=== PATIENT | female | born 1945 | race Two or more races ===

== ENCOUNTER 2024-07-19 11:02 | Inpatient (IN) | payer OTHER ==
[2024-07-19 11:28] VITALS: BMI 24.2
[2024-07-19] MEDS ORDERED: ONDANSETRON 4 MG/2 ML VIAL ONE (13:18)
[2024-07-19] MEDS ORDERED: FAMOTIDINE 20 MG/50 ML IVPB 20 MG/50 ML MG IVPB ONE (13:19)
[2024-07-19 13:27] LABS: BASO % 0.8 % (0-2.0); EOS % 4.4 % (0-4.5); HEMOGLOBIN 10.5 GM/dL (10.7-15.3); MCH 29.5 pg (25.7-33.7); MCHC 32.7 g/dl (32.0-36.0); MEAN CELL VOLUME 90.2 fl (80-96); MEAN PLT VOLUME 8.1 fl (7.5-11.1); MONO % 4.4 % (3.8-10.2); NEUT % 72.4 % (42.8-82.8); PLATELET COUNT 206 10^3/uL (134-434); RBC 3.55 M/mm3 (3.60-5.2); RDW 14.7 % (11.6-15.6)
[2024-07-19 13:33] LABS: INR 1.09 (0.83-1.09); PROTHROMBIN TIME (PATIENT) 12.5 SEC (9.7-13.0)
[2024-07-19] MEDS: SODIUM CHLORIDE 1,000 ML IV STA (13:34)
[2024-07-19] MEDS: FAMOTIDINE 20 MG/50 ML IVPB 20 MG/50 ML MG IVPB ONE (13:35)
[2024-07-19] MEDS: ONDANSETRON 4 MG/2 ML VIAL IVPUSH ONE (13:35)
[2024-07-19 13:36] LABS: ACTIVATED PTT 26.6 SECONDS (25.2-36.5)
[2024-07-19 13:49] LABS: ANISOCYTOSIS 0; MACROCYTOSIS 0
[2024-07-19 13:51] LABS: CHLORIDE 98 mmol/L (98-107); SODIUM 127 mmol/L (136-145)
[2024-07-19 13:53] LABS: ALBUMIN 2.9 g/dl (3.4-5.0); CALCIUM 7.8 mg/dL (8.5-10.1); CO2 13 mmol/L (21-32)
[2024-07-19 13:54] LABS: GLUCOSE,RANDOM 269 mg/dL (74-106)
[2024-07-19 13:56] LABS: SGOT/AST 28 U/L (15-37); SGPT/ALT 21 U/L (13-61)
[2024-07-19 13:57] LABS: CREATININE 6.2 mg/dL (0.55-1.3)
[2024-07-19 13:58] LABS: BILIRUBIN,TOTAL 0.4 mg/dL (0.2-1); TOT PROT 6.4 g/dl (6.4-8.2)
[2024-07-19 13:59] LABS: ALK PHOS 71 U/L (45-117)
[2024-07-19 14:34] LABS: ANION GAP 16 mmol/L (4-13); POTASSIUM 6.9 mmol/L (3.5-5.1)
[2024-07-19] MEDS ORDERED: predniSONE 20 MG TABLET (UD) ONE (14:58)
[2024-07-19] MEDS: predniSONE 20 MG TABLET (UD) PO ONE (15:00)
[2024-07-19 15:04] LABS: EPI CELLS 13 /uL (0-25.1); HYALINE CASTS 0 /uL (0-3.1); PH,URINE 5.5 (5.0-8.0); URINE APPEARANCE CLEAR; URINE BACTERIA 81 /uL (0-1359); URINE BILIRUBIN NEGATIVE (NEGATIVE); URINE COLOR YELLOW; URINE GLUCOSE (UA) NEGATIVE (NEGATIVE); URINE KETONE NEGATIVE (NEGATIVE); URINE LEUK ESTERASE NEGATIVE (NEGATIVE); URINE NITRITE NEGATIVE (NEGATIVE); URINE PROTEIN 2+ (NEGATIVE); URINE RBC 15 /uL (0-23.9); URINE UROBILINOGEN 0.2 mg/dL (0.2-1.0); URINE WBC 5 /uL (0-25.8); YEAST NEGATIVE (NEGATIVE)
[2024-07-19 16:13] LABS: CHLORIDE 103 mmol/L (98-107); SODIUM 130 mmol/L (136-145)
[2024-07-19 16:14] LABS: CALCIUM 7.4 mg/dL (8.5-10.1)
[2024-07-19 16:15] LABS: ANION GAP 14 mmol/L (4-13); CO2 13 mmol/L (21-32); GLUCOSE,RANDOM 249 mg/dL (74-106)
[2024-07-19 16:18] LABS: BLOOD UREA NITROGEN 106.6 mg/dL (7-18); CREATININE 5.7 mg/dL (0.55-1.3)
[2024-07-19] MEDS ORDERED: CALCIUM GLUCONATE 10% - 1,000 MG/10 ML VIAL ONE (16:45)
[2024-07-19] MEDS ORDERED: SODIUM ZIRCONIUM CYCLOSILICATE (LOKELMA) 5 GM PACKET ONE (16:45)
[2024-07-19] MEDS ORDERED: INSULIN REGULAR HUMAN 100 UNITS/ML *VIAL ONE (16:57)
[2024-07-19] MEDS ORDERED: SODIUM ZIRCONIUM CYCLOSILICATE (LOKELMA) 10 GM PACKET ONE (17:00)
[2024-07-19] MEDS ORDERED: DEXTROSE 50%-WATER 25 GM/50 ML DISP.SYRIN ONE (17:00)
[2024-07-19] MEDS: CALCIUM GLUCONATE 10% - 1,000 MG/10 ML VIAL IVPB ONE (17:10)
[2024-07-19] MEDS: SODIUM ZIRCONIUM CYCLOSILICATE (LOKELMA) 5 GM PACKET PO ONE (17:10)
[2024-07-19] MEDS: DEXTROSE 50%-WATER - 25 GM/50 ML VIAL IVPUSH ONE (17:10)
[2024-07-19] MEDS: INSULIN REGULAR HUMAN 100 UNITS/ML *VIAL IVPUSH ONE (17:10)
[2024-07-19] MEDS: SODIUM ZIRCONIUM CYCLOSILICATE (LOKELMA) 5 GM PACKET PO SCH (17:11)
[2024-07-19 19:19] LABS: CHLORIDE 103 mmol/L (98-107); POTASSIUM 5.4 mmol/L (3.5-5.1); SODIUM 128 mmol/L (136-145)
[2024-07-19 19:21] LABS: ANION GAP 13 mmol/L (4-13); CALCIUM 7.3 mg/dL (8.5-10.1); CO2 12 mmol/L (21-32); GLUCOSE,RANDOM 280 mg/dL (74-106)
[2024-07-19 19:24] LABS: CREATININE 5.8 mg/dL (0.55-1.3)
[2024-07-19 19:57] LABS: BLOOD UREA NITROGEN 104.2 mg/dL (7-18)
[2024-07-19] MEDS ORDERED: HEPARIN NA (PORCINE) 5,000 UNITS/ML 1ML VIAL ONE (21:41)
[2024-07-19] MEDS: HEPARIN NA (PORCINE) 5,000 UNITS/ML 1ML VIAL SQ SCH (21:53)
[2024-07-19] MEDS: INSULIN ASPART SLIDING SCALE (NOVOLOG) 1 VIAL SQ SCH (21:59)
[2024-07-19] MEDS ORDERED: SODIUM BICARBONATE 8.4% - 75 MEQ in SODIUM CHLORIDE 0.45% 1,000 ML IV SCH (22:15)
[2024-07-19] MEDS ORDERED: SODIUM BICARBONATE 8.4% 50 MEQ/50 ML DISP.SYRIN ONE (22:25)
[2024-07-19] MEDS: SODIUM BICARBONATE 8.4% 50 MEQ/50 ML DISP.SYRIN IVPUSH ONE (22:35)
[2024-07-19] MEDS: SODIUM BICARBONATE 8.4% - 75 MEQ in SODIUM CHLORIDE 0.45% 1,000 ML IV SCH (23:09)
[2024-07-20] MEDS ORDERED: SODIUM BICARBONATE 8.4% 50 MEQ/50 ML DISP.SYRIN ONE (00:58)
[2024-07-20] MEDS ORDERED: SODIUM ZIRCONIUM CYCLOSILICATE (LOKELMA) 10 GM PACKET ONE (00:58)
[2024-07-20] MEDS: SODIUM ZIRCONIUM CYCLOSILICATE (LOKELMA) 5 GM PACKET PO ONE (01:02)
[2024-07-20] MEDS: SODIUM BICARBONATE 8.4% 50 MEQ/50 ML DISP.SYRIN IVPUSH ONE ×2 (03:20→10:14)
[2024-07-20 06:20] LABS: ARTERIAL BLD GAS O2 SATURATION 96.9 % (95-98); ARTERIAL BLOOD GAS BASE EXCESS -10.9 mmol/L (-2-2); ARTERIAL BLOOD GAS PO2 92.7 mmHg (80-100); ARTERIAL BLOOD GAS pH 7.348 (7.350-7.450)
[2024-07-20 06:33] LABS: ALLENS TEST POSITIVE
[2024-07-20 08:37] LABS: HEMATOCRIT 29.2 % (32.4-45.2); HEMOGLOBIN 9.9 GM/dL (10.7-15.3); MCH 29.6 pg (25.7-33.7); MCHC 33.7 g/dl (32.0-36.0); MEAN CELL VOLUME 87.8 fl (80-96); MEAN PLT VOLUME 8.6 fl (7.5-11.1); PLATELET COUNT 172 10^3/uL (134-434); RBC 3.33 M/mm3 (3.60-5.2); RDW 14.7 % (11.6-15.6); WHITE BLOOD COUNT 12.2 K/mm3 (4.0-10.0)
[2024-07-20 09:05] LABS: CHLORIDE 100 mmol/L (98-107); SODIUM 132 mmol/L (136-145)
[2024-07-20 09:08] LABS: CALCIUM 7.8 mg/dL (8.5-10.1)
[2024-07-20 09:09] LABS: ALBUMIN 2.9 g/dl (3.4-5.0); ANION GAP 16 mmol/L (4-13); BLOOD UREA NITROGEN 93.8 mg/dL (7-18); CO2 15 mmol/L (21-32); GLUCOSE,RANDOM 243 mg/dL (74-106)
[2024-07-20 09:12] LABS: CREATININE 5.3 mg/dL (0.55-1.3); PHOSPHOROUS 5.2 mg/dL (2.5-4.9); SGOT/AST 9 U/L (15-37); SGPT/ALT 15 U/L (13-61)
[2024-07-20 09:13] LABS: BILIRUBIN,TOTAL 0.4 mg/dL (0.2-1); TOT PROT 6.3 g/dl (6.4-8.2)
[2024-07-20 09:15] LABS: ALK PHOS 67 U/L (45-117)
[2024-07-20] MEDS: PANTOPRAZOLE 40 MG TABLET PO SCH (09:56)
[2024-07-20] MEDS: NIFEdipine E.R. 90 MG TABLET PO SCH (09:56)
[2024-07-20] MEDS: SODIUM BICARBONATE 650 MG TABLET PO SCH ×2 (12:14→22:30)
[2024-07-20] MEDS: SODIUM BICARBONATE 8.4% - 50 MEQ in SODIUM CHLORIDE 0.45% 1,000 ML IV SCH (14:50)
[2024-07-20] MEDS: LIDOCAINE 1%/EPI 1:100000 (20 ML MULTI DOSE VIAL) IJ ONE (20:12)
[2024-07-20] MEDS: INSULIN (LEVEMIR) 100 UNITS/ML UNITS SQ ONE (20:13)
[2024-07-20] MEDS ORDERED: ATORVASTATIN CA 40 MG TABLET (FP) PO SCH (22:00)
[2024-07-20] MEDS: ATORVASTATIN CA 40 MG TABLET (FP) PO SCH (22:30)
[2024-07-20] MEDS: HEPARIN NA (PORCINE) 5,000 UNITS/ML 1ML VIAL SQ SCH (22:30)
[2024-07-20] MEDS: INSULIN ASPART SLIDING SCALE (NOVOLOG) 1 VIAL SQ SCH (22:35)
[2024-07-21] MEDS: SODIUM BICARBONATE 8.4% - 50 MEQ in SODIUM CHLORIDE 0.45% 1,000 ML IV SCH (00:02)
[2024-07-21] MEDS: INSULIN (LEVEMIR) 100 UNITS/ML UNITS SQ SCH (06:15)
[2024-07-21 08:30] LABS: HEMOGLOBIN 9.2 GM/dL (10.7-15.3); MCH 29.7 pg (25.7-33.7); MCHC 33.9 g/dl (32.0-36.0); MEAN CELL VOLUME 87.5 fl (80-96); MEAN PLT VOLUME 8.5 fl (7.5-11.1); PLATELET COUNT 160 10^3/uL (134-434); RBC 3.09 M/mm3 (3.60-5.2); RDW 14.6 % (11.6-15.6); WHITE BLOOD COUNT 13.9 K/mm3 (4.0-10.0)
[2024-07-21 08:40] LABS: POTASSIUM 3.8 mmol/L (3.5-5.1)
[2024-07-21 08:50] LABS: ALBUMIN 2.6 g/dl (3.4-5.0); BLOOD UREA NITROGEN 81.4 mg/dL (7-18); CALCIUM 7.3 mg/dL (8.5-10.1)
[2024-07-21 08:53] LABS: CREATININE 4.5 mg/dL (0.55-1.3)
[2024-07-21 08:54] LABS: BILIRUBIN,TOTAL 0.3 mg/dL (0.2-1); TOT PROT 5.5 g/dl (6.4-8.2)
[2024-07-21] MEDS: NIFEdipine E.R. 90 MG TABLET PO SCH (10:25)
[2024-07-21] MEDS: PANTOPRAZOLE 40 MG TABLET PO SCH (10:25)
[2024-07-21 10:29] LABS: ANISOCYTOSIS 0; HELMET CELLS 0; HOWELL-JOLLY BODIES 0; MACROCYTOSIS 0; OVALOCYTE 0; ROULEAU 0; SICKELED CELLS 0; TARGET CELLS 0; TEAR DROP CELLS 0; TOXIC GRANULATION 0
[2024-07-21] MEDS ORDERED: INSULIN ASPART SLIDING SCALE (NOVOLOG) 1 VIAL SQ ONE (11:48)
[2024-07-21] MEDS: ACETAMINOPHEN 325 MG TABLET (FP) PO PRN (15:08)
[2024-07-22 07:17] LABS: MCH 29.2 pg (25.7-33.7); MCHC 33.2 g/dl (32.0-36.0); MEAN CELL VOLUME 87.9 fl (80-96); MEAN PLT VOLUME 7.9 fl (7.5-11.1); PLATELET COUNT 176 10^3/uL (134-434); RBC 3.41 M/mm3 (3.60-5.2); RDW 14.4 % (11.6-15.6); WHITE BLOOD COUNT 13.9 K/mm3 (4.0-10.0)
[2024-07-22 07:41] LABS: POTASSIUM 4.2 mmol/L (3.5-5.1)
[2024-07-22 07:47] LABS: ALBUMIN 2.8 g/dl (3.4-5.0); CALCIUM 7.2 mg/dL (8.5-10.1)
[2024-07-22 07:48] LABS: BLOOD UREA NITROGEN 74.2 mg/dL (7-18); MAGNESIUM 1.6 mg/dL (1.8-2.4)
[2024-07-22 07:51] LABS: CREATININE 3.9 mg/dL (0.55-1.3)
[2024-07-22 07:52] LABS: BILIRUBIN,TOTAL 0.6 mg/dL (0.2-1)
[2024-07-22] MEDS: MAGNESIUM SULF 50% (8.12 MEQ/2 ML-1 GM VIAL) IVPB ONE (10:28)
[2024-07-22] MEDS: INSULIN (LEVEMIR) 100 UNITS/ML UNITS SQ SCH (22:21)
[2024-07-22 22:30] VITALS: RESP 18
[2024-07-23 09:02] LABS: HEMATOCRIT 34.3 % (32.4-45.2); HEMOGLOBIN 11.9 GM/dL (10.7-15.3); MCH 30.1 pg (25.7-33.7); MCHC 34.6 g/dl (32.0-36.0); MEAN CELL VOLUME 86.8 fl (80-96); PLATELET COUNT 200 10^3/uL (134-434); RBC 3.95 M/mm3 (3.60-5.2); RDW 14.4 % (11.6-15.6); WHITE BLOOD COUNT 14.8 K/mm3 (4.0-10.0)
[2024-07-23 09:20] LABS: POTASSIUM 3.7 mmol/L (3.5-5.1)
[2024-07-23 09:22] LABS: CALCIUM 7.1 mg/dL (8.5-10.1)
[2024-07-23 09:23] LABS: BLOOD UREA NITROGEN 59.8 mg/dL (7-18); MAGNESIUM 1.8 mg/dL (1.8-2.4)
[2024-07-23 09:26] LABS: ALBUMIN 3.3 g/dl (3.4-5.0); CREATININE 3.7 mg/dL (0.55-1.3)
[2024-07-23 09:27] LABS: BILIRUBIN,TOTAL 0.5 mg/dL (0.2-1); TOT PROT 7.2 g/dl (6.4-8.2)
[2024-07-23 11:19] VITALS: TEMP 97.9
[2024-07-23 12:06] VITALS: BP 139/64; PULSE 70
[2024-07-23 21:06] LABS: ANTIGLOMERULAR BASEMENT MEN.AB <0.2 units (0.0-0.9)
[2024-07-24 16:09] LABS: C-ANCA <1:20 titer (Neg:<1:20)
== END 2024-07-23 14:05 | disposition home or self-care (01) | DRG 683 ==
LOC: JER 11:02 → JERBED 15:18 → J4W 07-20 05:32 → J7W 07-20 21:25
PROVIDERS: ADMIT Internal Medicine; ATTEND Internal Medicine
DX: N17.9 Acute kidney failure, unspecified (principal); E87.20 Acidosis, unspecified; E78.5 Hyperlipidemia, unspecified; R21 Rash and other nonspecific skin eruption; I12.9 Hypertensive chronic kidney disease with stage 1 through stage 4 chronic kidney disease, or unspecified chronic kidney disease; E11.22 Type 2 diabetes mellitus with diabetic chronic kidney disease; N18.9 Chronic kidney disease, unspecified; E87.5 Hyperkalemia; R55 Syncope and collapse
CPT/HCPCS: 0241U-QW; 36415; 36600; 71045-TC-FY; 76775-TC; 80048; 80053; 81003; 82010; 82570; 82803; 82962; 83516; 83520; 83605; 83735; 84100; 84156; 84300; 84484; 85025; 85027; 85610; 85730; 86038; 86160; 86162; 86225; 86256; 86431; 86757; 87086; 93005; 93010; 97116-GP; 97162-GP; 99285-25; J1644